=== PATIENT | male | born 2000 | race Caucasian/White ===

== ENCOUNTER 2025-06-09 15:34 | Emergency (ER) | payer BC ==
[2025-06-09] MEDS ORDERED: Bacitracin 1 PK ONE (16:10)
[2025-06-09 20:19] LABS: HBSAB Concentration Less than 8.00 mIU/mL; HIV (1/2) Antibody/Antigen NONREACTIVE (NonReactive); HIV 1/2 INDEX 0.15 S/CO (<1.00); Hep C IgG Ab NONREACTIVE S/CO (NonReactive); Hep C Index 0.13 S/CO (0-0.79)
== END 2025-06-09 16:39 | disposition home or self-care (01) ==
LOC: MADERS 15:34
DX: S60.811A Abrasion of right wrist, initial encounter (principal); W25.XXXA Contact with sharp glass, initial encounter
CPT/HCPCS: 36415; 86706; 86803; 87389; 99283